=== PATIENT | male | born 1955 | race Two or more races ===

== ENCOUNTER 2018-11-12 05:21 | Emergency (ER) | payer OTHER ==
[~2018-11-12] VITALS: Ht 172.7 cm; Wt 90.7 kg
[2018-11-12] MEDS ORDERED: ASA81 MG (05:29)
[2018-11-12] MEDS ORDERED: NORVASC2.5 M1 (05:29)
[2018-11-12] MEDS ORDERED: COZAAR25 MG (05:29)
[2018-11-12] MEDS ORDERED: PLAVIX75 MG (05:29)
[2018-11-12] MEDS ORDERED: ZOCOR20 MG (05:29)
== END 2018-11-12 10:59 | disposition home or self-care (01) ==
LOC: ER 05:21
DX: R42 Dizziness and giddiness (principal)

== ENCOUNTER 2019-04-17 10:23 | Emergency (ER) | payer OTHER ==
[~2019-04-17] VITALS: Ht 172.7 cm; Wt 90.7 kg
[~2019-04-17 10:23] MED LIST: ASA81 MG; COZAAR25 MG; NORVASC2.5 M1; PLAVIX75 MG; ZOCOR20 MG
== END 2019-04-17 14:48 | disposition home or self-care (01) ==
LOC: ER 10:23
DX: S30.0XXA Contusion of lower back and pelvis, initial encounter (principal); W18.39XA Other fall on same level, initial encounter; Y93.89 Activity, other specified; Y92.488 Other paved roadways as the place of occurrence of the external cause; Y99.8 Other external cause status

== ENCOUNTER 2019-05-08 15:38 | Emergency (ER) | payer OTHER ==
[~2019-05-08] VITALS: Ht 175.3 cm; Wt 104.3 kg
[2019-05-08] MEDS ORDERED: MEDROLPACK PO (22:02)
[2019-05-08] MEDS ORDERED: ULTRACET PO (22:03)
== END 2019-05-08 22:25 | disposition home or self-care (01) ==
LOC: ER 15:38
DX: M54.5 Low back pain (principal)

== ENCOUNTER 2019-07-07 12:26 | Emergency (ER) | payer OTHER ==
[~2019-07-07] VITALS: Ht 172.7 cm; Wt 104.3 kg
[~2019-07-07 12:26] MED LIST changes: +MEDROLPACK PO; +ULTRACET PO
== END 2019-07-07 16:27 | disposition home or self-care (01) ==
LOC: ER 12:26
DX: M54.5 Low back pain (principal); M79.605 Pain in left leg; M79.604 Pain in right leg

== ENCOUNTER 2020-05-24 12:59 | Emergency (ER) | payer OTHER ==
[~2020-05-24] VITALS: Ht 175.3 cm; Wt 106.6 kg
[2020-05-24] MEDS ORDERED: ECOTRIN325 M1 (13:08)
[2020-05-24] MEDS ORDERED: ZOCOR40 MG (13:10)
[2020-05-24] MEDS ORDERED: NORVASC10 MG (13:11)
[2020-05-25] MEDS ORDERED: MOTION SICKNESS25 M1 PO (11:57)
[2020-05-25] MEDS ORDERED: DUI500 PO (11:57)
[2020-05-25] MEDS ORDERED: INTESTINEX680 M1 PO (11:57)
== END 2020-05-24 18:24 | disposition home or self-care (01) ==
LOC: ER 12:59
DX: R22.1 Localized swelling, mass and lump, neck (principal)

== ENCOUNTER 2020-05-25 08:43 | Emergency (ER) | payer OTHER ==
[~2020-05-25] VITALS: Ht 175.3 cm; Wt 107.0 kg
[~2020-05-25 08:43] MED LIST changes: +ECOTRIN325 M1; +NORVASC10 MG; +ZOCOR40 MG
[2020-05-25] MEDS ORDERED: INTESTINEX680 M1 PO (11:57)
[2020-05-25] MEDS ORDERED: DUI500 PO (11:57)
[2020-05-25] MEDS ORDERED: MOTION SICKNESS25 M1 PO (11:57)
== END 2020-05-25 12:42 | disposition home or self-care (01) ==
LOC: ER 08:43
DX: R59.1 Generalized enlarged lymph nodes (principal); M54.2 Cervicalgia

== ENCOUNTER 2021-07-30 15:43 | Emergency (ER) | payer OTHER ==
[~2021-07-30] VITALS: Ht 172.7 cm; Wt 95.3 kg
[~2021-07-30 15:43] MED LIST changes: +DUI500 PO; +INTESTINEX680 M1 PO; +MOTION SICKNESS25 M1 PO
[2021-07-30] MEDS ORDERED: DOLOGESIC-DF 51 EACH PO (16:46)
[2021-07-30] MEDS ORDERED: ORPHENADRINE C100 MG PO (16:46)
== END 2021-07-30 16:51 | disposition home or self-care (01) ==
LOC: ER 15:43
DX: M54.42 Lumbago with sciatica, left side (principal); M54.41 Lumbago with sciatica, right side

== ENCOUNTER 2023-07-27 11:58 | Emergency (ER) | payer OTHER ==
[~2023-07-27] VITALS: Ht 175.3 cm; Wt 90.7 kg
[~2023-07-27 11:58] MED LIST changes: +DOLOGESIC-DF 51 EACH PO; +ORPHENADRINE C100 MG PO
[2023-07-27 17:09] LABS: URINE APPEARANCE Cloudy; URINE BILIRRUBIN Small (NEGATIVE); URINE BLOOD Large; URINE COLOR Dark Yellow; URINE GLUCOSE Negative (NEGATIVE); URINE LEUKOCYTE Small; URINE NITRATE Negative
[2023-07-27 17:13] LABS: URINE BACTERIA 239.3 uL (0.0-1933); URINE EPITHELIAL CELLS 33.3 uL (0.0-38.8); URINE RBC 5687.7 uL (0.0-20.8); URINE WBC 352.6 uL (0.0-23.2)
[2023-07-27 17:13] LABS: HEMATOCRIT 48.9 % (39.0-48.0); HEMOGLOBIN 16.6 g/dL (13-16.00); MEAN CELL VOLUME 91.5 fL (80.0-100.00); MEAN CORPUSCULAR HEMOGLOBIN 31.1 pg (27.00-32.0); PLATELET COUNT 312 K/uL (150-450); RED BLOOD COUNT 5.35 M/uL (4.00-6.00); RED CELL DISTRIBUTION WIDTH 15.3 % (11.5-14.5)
[2023-07-27 17:17] LABS: URINE PROTEIN 300 (NEGATIVE)
[2023-07-27 17:27] LABS: ALBUMIN 4.1 gm/dL (3.4-5.0); BILIRUBIN TOTAL 1.22 mg/dL (0.3-1.2); CALCIUM 9.3 mg/dL (8.5-10.1); CREATININE SERUM 1.38 mg/dL (0.70-1.30); GFR 51.09; GLOBULINA 3.6 G/DL (2.4-3.5); POTASSIUM 4.59 mEq/L (3.5-5.1); TOTAL PROTEIN 7.7 gm/dL (6.4-8.2)
== END 2023-07-27 18:12 | disposition home or self-care (01) ==
LOC: ER 11:58
PROVIDERS: General Practice
DX: N39.0 Urinary tract infection, site not specified (principal); I10 Essential (primary) hypertension

== ENCOUNTER 2024-11-16 13:59 | Emergency (ER) | payer OTHER ==
[~2024-11-16] VITALS: Ht 175.3 cm; Wt 90.7 kg
[2024-11-16] MEDS ORDERED: COZAAR100 MG PO (15:10)
[2024-11-16 16:17] LABS: BASO % 0.5 % (0.1-1.2); EOS # 0.01 (0.04-0.54); EOS % 0.1 % (0.7-7.0); HEMATOCRIT 46.2 % (40.1-51.0); HEMOGLOBIN 15.8 g/dL (13.7-17.5); LYMPH % 18.6 % (19.3-53.1); MONO # 0.75 (0.24-0.82); MONO % 6.1 % (4.7-12.5); NEUT # 9.19 (1.56-6.13); NEUT % 74.5 % (34.0-71.1); PLATELET COUNT 313 K/uL (163-369); RED BLOOD COUNT 5.09 M/uL (4.63-6.08); RED CELL DISTRIBUTION WIDTH 13.8 % (11.6-14.4)
[2024-11-16 16:27] LABS: PH,URINE 5.5 (5.0-8.0); URINE APPEARANCE Turbid; URINE BILIRRUBIN Small (NEGATIVE); URINE BLOOD Large; URINE COLOR Orange; URINE GLUCOSE Negative (NEGATIVE); URINE KETONE Negative (NEGATIVE); URINE LEUKOCYTE Small; URINE NITRATE Negative
[2024-11-16 16:31] LABS: URINE BACTERIA 441.8 uL (0.0-1933); URINE EPITHELIAL CELLS 66.8 uL (0.0-38.8); URINE WBC 291.9 uL (0.0-23.2)
[2024-11-16 16:43] LABS: ALBUMIN 4.1 gm/dL (3.4-5.0); BILIRUBIN TOTAL 0.75 mg/dL (0.3-1.2); CALCIUM 9.1 mg/dL (8.5-10.1); CREATININE SERUM 1.21 mg/dL (0.70-1.30); GFR 59.28; GLOBULINA 3.2 G/DL (2.4-3.5); POTASSIUM 4.53 mEq/L (3.5-5.1); TOTAL PROTEIN 7.3 gm/dL (6.4-8.2)
[2024-11-16 17:17] LABS: URINE CAST 1.09 uL (0.0-1.40); URINE PROTEIN 300 (NEGATIVE); URINE RBC > 10558.9 uL (0.0-20.8)
[2024-11-16] MEDS ORDERED: CIPROFLOXACIN IN 5 % DEXTROSE 400 MG/200 ML PIGGYBAG IV STA (17:33)
[2024-11-16] MEDS ORDERED: CIPROFLOXACIN IN 5 % DEXTROSE 400 MG/200 ML PIGGYBAG IV ONE (17:46)
[2024-11-16] MEDS ORDERED: IBU400 MG PO (20:02)
[2024-11-16] MEDS ORDERED: CIPRO500 MG PO (20:02)
== END 2024-11-16 20:14 | disposition home or self-care (01) ==
LOC: ER 14:14
PROVIDERS: General Practice
DX: N21.0 Calculus in bladder (principal); N30.90 Cystitis, unspecified without hematuria; I10 Essential (primary) hypertension
CPT/HCPCS: 36415; 74176; 96365; 99284; J0744

== ENCOUNTER → 2025-06-14 | Emergency (ER) | payer OTHER ==
[~2025-06-14] VITALS: Ht 175.3 cm; Wt 98.0 kg
[~2025-06-14] MED LIST changes: +BACTRIM DS TAB1 EACH PO; +CEFTRIAXONE SODIUM 1,000 MG VIAL IV ONE; +CEFTRIAXONE SODIUM 1,000 MG VIAL ONE; +CIPRO500 MG PO; +COZAAR100 MG PO; +IBU400 MG PO; +KETOROLAC TROMETHAMINE 30 MG VIAL IV ONE; +KETOROLAC TROMETHAMINE 30 MG VIAL ONE; +PEPCID AC20 MG PO; +TAMSULOSIN HCL 0.4 MG CAP PO ONE
[2025-06-14 10:16] LABS: BASO % 0.9 % (0.1-1.2); EOS # 0.07 (0.04-0.54); EOS % 0.9 % (0.7-7.0); LYMPH # 1.83 (1.18-3.74); LYMPH % 23.1 % (19.3-53.1); MEAN PLATELET VOLUME 9.80 fl (9.4-12.4); MONO # 0.64 (0.24-0.82); MONO % 8.1 % (4.7-12.5); NEUT # 5.30 (1.56-6.13); NEUT % 66.9 % (34.0-71.1); RED CELL DISTRIBUTION WIDTH 12.9 % (11.6-14.4)
[2025-06-14 10:48] LABS: URINE APPEARANCE Clear; URINE BILIRRUBIN Negative (NEGATIVE); URINE BLOOD Large; URINE COLOR Dark Yellow; URINE GLUCOSE Negative (NEGATIVE); URINE KETONE Trace (NEGATIVE); URINE LEUKOCYTE Small; URINE NITRATE Negative; URINE UROBILINOGEN 1.0 E.U./dl
[2025-06-14 10:51] LABS: URINE BACTERIA 547.8 uL (0.0-1933); URINE EPITHELIAL CELLS 49.0 uL (0.0-38.8); URINE RBC 1175.2 uL (0.0-20.8); URINE WBC 91.5 uL (0.0-23.2)
[2025-06-14 11:00] LABS: ALT/SGPT 29.0 U/L (12-78); AST/SGOT 19.0 U/L (15-37); BILIRUBIN TOTAL 1.05 mg/dL (0.3-1.2); BUN CREA RATIO 8.0 (7.0-25.0); CREATININE SERUM 1.2 mg/dL (0.70-1.30); GFR 59.68; GLOBULINA 3.3 G/DL (2.4-3.5); GLUCOSE FASTING 109.0 mg/dL (65-100); INR 0.96; OSMOLALITY SERUM 285.0 MOSM/KG (275-295)
[2025-06-14 11:54] LABS: URINE CAST 0.42 uL (0.0-1.40); URINE PROTEIN 100 (NEGATIVE)
[2025-06-14 11:56] LABS: URINE MUCUS MODERATE
== END | disposition home or self-care (01) ==
LOC: ER 07:32
PROVIDERS: General Practice
DX: R10.20 Pelvic and perineal pain unspecified side (principal); Z86.73 Personal history of transient ischemic attack (TIA), and cerebral infarction without residual deficits; I10 Essential (primary) hypertension; N40.0 Benign prostatic hyperplasia without lower urinary tract symptoms; N21.0 Calculus in bladder; N30.90 Cystitis, unspecified without hematuria
CPT/HCPCS: 36415; 74176; 96365; 99284; J0696; J1885